=== PATIENT | male | born 1975 | race Caucasian/White ===

== ENCOUNTER 2022-09-07 10:12 | Emergency (ER) | payer MEDICARE ==
[~2022-09-07] VITALS: Ht 175.3 cm; Wt 77.3 kg
[~2022-09-07 10:12] MED LIST: CITA10TA89 PO; OLAN5TAB77 PO
[2022-09-07] MEDS ORDERED: BUSP5TAB20 PO (12:32)
[2022-09-07] MEDS ORDERED: TRAZ-257 PO (12:32)
[2022-09-07] MEDS ORDERED: QUET25TA PO (12:32)
[2022-09-07] MEDS ORDERED: OLAN7.5T22 PO (12:32)
[2022-09-07 12:56] VITALS: BP 108/78
== END 2022-09-07 12:56 | disposition home or self-care (01) ==
LOC: EMS 10:16
DX: F31.9 Bipolar disorder, unspecified (principal); F17.210 Nicotine dependence, cigarettes, uncomplicated; F12.90 Cannabis use, unspecified, uncomplicated; Z59.00 Homelessness unspecified; Z93.3 Colostomy status
CPT/HCPCS: 99281; Z7502

== ENCOUNTER 2022-09-10 10:38 | Emergency (ER) | payer MEDICARE ==
[~2022-09-10] VITALS: Ht 175.3 cm; Wt 77.3 kg
[~2022-09-10 10:38] MED LIST changes: +BUSP5TAB20 PO; +OLAN7.5T22 PO; +QUET25TA PO; +TRAZ-257 PO
[2022-09-10 11:03] VITALS: TEMP 98.3
[2022-09-10 11:30] LABS: BASOPHILS % (AUTO) 0.9 % (0.0-2.0); EOSINOPHILS % (AUTO) 1.4 % (1.0-6.0); HEMATOCRIT 30.6 % (41-53); HEMOGLOBIN 10.7 g/dL (13.5-17.5); LYMPHOCYTES # (AUTO) 1.6 K/uL (1.0-4.8); LYMPHOCYTES % (AUTO) 12.2 % (22.0-44.0); MEAN CORPUSCULAR HEMOGLOBIN 28.3 pg (26.0-34.0); MEAN CORPUSCULAR VOLUME 81 fL (80-100); MONOCYTES # (AUTO) 0.8 K/uL (0.1-1.0); MONOCYTES % (AUTO) 6.3 % (2.0-9.0); NEUTROPHILS # (AUTO) 10.1 K/uL (1.8-7.7); NEUTROPHILS % (AUTO) 79.2 % (40.0-70.0); PLATELET COUNT (AUTO) 437 K/uL (150-450); RED BLOOD CELL COUNT(AUTO) 3.77 MIL/uL (4.50-5.90); RED CELL DISTRIBUTION WIDTH 17.8 % (11.5-14.5)
[2022-09-10 11:54] LABS: ALANINE AMINOTRANSFERASE 21 U/L (12-78); ALBUMIN 3.2 g/dL (3.4-5.0); ALKALINE PHOSPHATASE 86 U/L (46-116); ANION GAP 7 mmol/L (8-16); ASPARTATE AMINOTRANSFERASE 19 U/L (15-37); BILIRUBIN,TOTAL 0.6 mg/dL (0.1-1.0); CALCIUM, TOTAL 9.3 mg/dL (8.8-10.5); CARBON DIOXIDE 40 mmol/L (22-29); CHLORIDE 85 mmol/L (98-107); GLOMERULAR FILTR. RATE CALC 51 mL/min (>60); GLUCOSE,RANDOM 119 mg/dL (70-110); SODIUM SERUM 132 mmol/L (136-145); TOTAL PROTEIN, SERUM 7.9 g/dL (6.4-8.2)
[2022-09-10 12:00] LABS: POTASSIUM 2.6 mmol/L (3.5-5.1)
[2022-09-10] MEDS ORDERED: POTASSIUM CHLORIDE 20 MEQ ER TABLET PO ONE (12:00)
[2022-09-10 12:01] LABS: PROTHROMBIN TIME 10.9 SEC (9.4-11.6)
[2022-09-10 12:09] LABS: LACTIC ACID 2.1 mmol/L (0.4-2.0)
[2022-09-10 13:18] VITALS: BP 125/82; PULSE 84; RESP 18
== END 2022-09-10 13:20 | disposition home or self-care (01) ==
LOC: EMS 10:39
DX: K94.00 Colostomy complication, unspecified (principal); E87.6 Hypokalemia; F32.A Depression, unspecified; F20.9 Schizophrenia, unspecified; F17.210 Nicotine dependence, cigarettes, uncomplicated; F12.90 Cannabis use, unspecified, uncomplicated; Z59.00 Homelessness unspecified
CPT/HCPCS: 80053; 83605; 85025; 85610; 85730; 99284

== ENCOUNTER 2022-09-12 08:26 | Emergency (ER) | payer MEDICARE ==
[~2022-09-12] VITALS: Ht 175.3 cm; Wt 79.5 kg
[~2022-09-12 08:26] MED LIST changes: -CITA10TA89 PO; -OLAN5TAB77 PO
[2022-09-12 08:34] VITALS: BP 155/110; PULSE 88; RESP 18; TEMP 98.2
[2022-09-12] MEDS ORDERED: CLOTRIMAZOLE 1% 15 GM CREAM TP ONE (08:45)
== END 2022-09-12 09:54 | disposition home or self-care (01) ==
LOC: EMS 08:33
DX: B35.9 Dermatophytosis, unspecified (principal); Z43.3 Encounter for attention to colostomy; F32.A Depression, unspecified; F20.9 Schizophrenia, unspecified; F17.210 Nicotine dependence, cigarettes, uncomplicated; F12.90 Cannabis use, unspecified, uncomplicated; Z59.00 Homelessness unspecified
CPT/HCPCS: 99282; Z7502; Z7610

== ENCOUNTER 2022-09-13 19:51 | Emergency (ER) | payer MEDICARE ==
[~2022-09-13] VITALS: Ht 170.2 cm; Wt 85.0 kg
[2022-09-13 19:58] VITALS: TEMP 98.2
[2022-09-13 20:31] VITALS: BP 126/71; PULSE 95; RESP 18
== END 2022-09-13 21:38 | disposition home or self-care (01) ==
LOC: EMS 19:51
DX: Z43.3 Encounter for attention to colostomy (principal); F32.A Depression, unspecified; F20.9 Schizophrenia, unspecified; F17.210 Nicotine dependence, cigarettes, uncomplicated; F12.90 Cannabis use, unspecified, uncomplicated; Z59.00 Homelessness unspecified
CPT/HCPCS: 99283; Z7502

== ENCOUNTER 2024-01-29 03:10 | Emergency (ER) | payer MEDICARE, MEDICAID ==
[~2024-01-29] VITALS: Ht 177.8 cm; Wt 65.9 kg
[~2024-01-29 03:10] MED LIST changes: +ACET-66 PO; +IBUP-1554 PO; +OLAN10TA74 PO; -OLAN7.5T22 PO; -QUET25TA PO; +TRAZ-252 PO; -TRAZ-257 PO
[2024-01-29 03:34] VITALS: BP 144/96; PULSE 77; RESP 16; TEMP 98.2; O2SAT 100
[2024-01-29] MEDS ORDERED: TRAZ-257 PO (03:45)
[2024-01-29] MEDS ORDERED: BUSP15 PO (03:45)
[2024-01-29] MEDS: BusPIRone HCL 15 MG TABLET PO ONE (04:06)
[2024-01-29] MEDS: OLANZapine 10 MG TABLET PO ONE (04:06)
== END 2024-01-29 05:49 | disposition home or self-care (01) ==
LOC: EMS 03:10
DX: F25.9 Schizoaffective disorder, unspecified (principal); F12.90 Cannabis use, unspecified, uncomplicated; Z59.02 Unsheltered homelessness; Z79.899 Other long term (current) drug therapy
CPT/HCPCS: 99283